=== PATIENT | male | born 1980 | race Caucasian/White ===

== ENCOUNTER 2018-06-22 09:03 | Inpatient (IN) | payer OTHER ==
[2018-06-22] MEDS ORDERED: SODIUM CHLORIDE 1,000 ML IV STA (09:52)
[2018-06-22 10:10] LABS: BASO % 0.5 % (0-2.0); EOS % 0.2 % (0-4.5); HEMATOCRIT 52.1 % (35.4-49); LYMPH % 19.7 % (8-40); MCHC 34.6 g/dl (32.0-35.9); MEAN CELL VOLUME 89.6 fl (80-96); MEAN PLT VOLUME 10.7 fl (7.5-11.1); NEUT % 74.6 % (42.8-82.8); PLATELET COUNT 236 K/MM3 (134-434); RBC 5.81 M/mm3 (4.00-5.60); WHITE BLOOD COUNT 10.9 K/mm3 (4.0-10.0)
[2018-06-22 10:22] LABS: INR 0.94 (0.83-1.09); PROTHROMBIN TIME (PATIENT) 11.1 SEC (9.7-13.0)
[2018-06-22 10:25] LABS: ACTIVATED PTT 33.3 SECONDS (25.2-36.5)
[2018-06-22 10:26] LABS: URINE APPEARANCE CLEAR; URINE BILIRUBIN NEGATIVE (<2.0 mg/dL); URINE COLOR LTYELLOW; URINE GLUCOSE (UA) 3+ (NEGATIVE); URINE KETONE 2+ (NEGATIVE); URINE LEUK ESTERASE NEGATIVE (NEGATIVE); URINE NITRITE NEGATIVE (NEGATIVE); URINE PROTEIN 2+ (NEGATIVE); URINE UROBILINOGEN NEGATIVE mg/dL (0.2-1.0)
[2018-06-22 10:31] LABS: ALBUMIN 4.6 g/dl (3.4-5.0); ALK PHOS 130 U/L (45-117); ANION GAP 18 MMOL/L (8-16); BILIRUBIN,TOTAL 0.8 mg/dL (0.2-1); BLOOD UREA NITROGEN 9 mg/dL (7-18); CALCIUM 9.4 mg/dL (8.5-10.1); CHLORIDE 103 mmol/L (98-107); CO2 11 mmol/L (21-32); CREATININE 1.1 mg/dL (0.55-1.3); MAGNESIUM 2.5 mg/dL (1.8-2.4); PHOSPHOROUS 3.1 mg/dL (2.5-4.9); POTASSIUM 4.7 mmol/L (3.5-5.1); SGOT/AST 11 U/L (15-37); SGPT/ALT 25 U/L (13-61); SODIUM 132 mmol/L (136-145); TOT PROT 9.1 g/dl (6.4-8.2)
[2018-06-22 10:33] LABS: GLUCOSE,RANDOM 304 mg/dL (74-106)
[2018-06-22 10:43] LABS: URINE HYALINE CAST 1 /lpf
[2018-06-22] MEDS ORDERED: DEXTROSE 5%-NORMAL SALINE 1,000 ML IV SCH (10:45)
[2018-06-22] MEDS ORDERED: INSULIN REGULAR 100 UNITS in SODIUM CHLORIDE 99 ML IVPB SCH ×2 (10:45→23:45)
[2018-06-22] MEDS ORDERED: INSULIN REGULAR HUMAN 100 UNITS/ML *VIAL ONE ×2 (10:50→10:57)
--- NOTE | 2018-06-22 10:50 | PDOC ---
History of Present Illness - General Chief Complaint: Weakness Stated Complaint: SHORTNESS OF BREATH Time Seen by Provider: 06/22/18 09:43 History Source: Patient Exam Limitations: No Limitations - History of Present Illness Initial Comments: 06/22/18 10:50 37 year old male c/ pmh type 1 DM, current smoker, former cocaine and alcohol abuse presents with weakness and SOB x 2 days. The patient reports that he has been feeling generally weak. Drinking plenty of fluids because he feels thirsty. Notes that his sugars are poorly controlled despite taking insulin. No recent illnesses, fevers, chills, cough, vomiting, dysuria. Also noted worsening dyepna on exertion and SOB improved with rest. No chest pain. No prior cardiac history. Denies IVDA use. Past History - Past Medical History Allergies/Adverse Reactions: Allergies Allergy/AdvReac Type Severity Reaction Status Date / Time No Known Allergies Allergy Verified 06/22/18 09:34 Home Medications: Ambulatory Orders Insulin Glargine,Hum.rec.anlog [Lantus] 20 unit SQ HS 06/22/18 Insulin Glargine,Hum.rec.anlog [Lantus] 35 unit SQ AM 06/22/18 Insulin Lispro [Humalog] 0 unit SQ ASDIR 06/22/18 Lisinopril 10 mg PO DAILY 06/22/18 COPD: No - Suicide/Smoking/Psychosocial Hx Smoking History: Current every day smoker Number of Cigarettes Smoked Daily: 10 Information on smoking cessation initiated: No Hx Alcohol Use: Yes Drug/Substance Use Hx: Yes Review of Systems - Review of Systems Able to Perform ROS?: Yes Comments:: 06/22/18 10:53 GENERAL/CONSTITUTIONAL: [No fever or chills. No weight change.] + weakness HEAD, EYES, EARS, NOSE AND THROAT: [No change in vision. No ear pain or discharge. No sore throat.] CARDIOVASCULAR: [No chest pain. + shortness of breath.] RESPIRATORY: [No cough, wheezing, or hemoptysis.] GASTROINTESTINAL: [No nausea, vomiting, diarrhea or constipation. No rectal bleeding.] GENITOURINARY: [No dysuria, frequency, or change in urination.] MUSCULOSKELETAL: [No joint or muscle swelling or pain. No neck or back pain.] SKIN AND BREASTS: [No rash or easy bruising.] NEUROLOGIC: [No headache, vertigo, loss of consciousness, or loss of sensation.] PSYCHIATRIC: [No depression or anxiety.] ENDOCRINE: [No increased thirst. No abnormal weight change.] HEMATOLOGIC/LYMPHATIC: [No anemia, easy bleeding, or history of blood clots.] ALLERGIC/IMMUNOLOGIC: [No hives or skin allergy. No latex allergy.] *Physical Exam - Vital Signs Last Vital Signs Temp Pulse Resp BP Pulse Ox 97.6 F 71 18 144/75 100 06/22/18 09:05 06/22/18 09:05 06/22/18 09:05 06/22/18 09:05 06/22/18 09:05 - Physical Exam Comments: 06/22/18 10:54 GENERAL: Awake, alert, and fully oriented, in no acute distress HEAD: No signs of trauma EYES: EOMI, sclera anicteric, conjunctiva clear ENT: Auricles normal inspection, hearing grossly normal, nares patent. + dry mucous membranes NECK: Normal ROM, supple LUNGS: Breath sounds equal, clear to auscultation bilaterally. No wheezes, and no crackles HEART: Regular rate and rhythm, normal S1 and S2, no murmurs, rubs or gallops ABDOMEN: Soft, nontender, No guarding, no rebound. No masses EXTREMITIES: Normal range of motion, no edema. No clubbing or cyanosis. No cords, erythema, or tenderness NEUROLOGICAL: Cranial nerves II through XII grossly intact. Normal speech SKIN: Warm, Dry, normal turgor, no rashes or lesions noted. Moderate Sedation - Procedure Monitoring Vital Signs: Procedure Monitoring Vital Signs Temperature 97.6 F 06/22/18 09:05 Pulse Rate 71 06/22/18 09:05 Respiratory Rate 18 06/22/18 09:05 Blood Pressure 144/75 06/22/18 09:05 O2 Sat by Pulse Oximetry (%) 100 06/22/18 09:05 Heart Score/ECG Review #1 ECG reviewed & interpreted by me at: 10:15 06/22/18 10:45 NSR 63, no std/iqra, normal axis, normal intervals, T wave flat aVL, QTC 452 msec ED Treatment Course - LABORATORY CBC & Chemistry Diagram: 06/22/18 10:00 06/22/18 14:40 - ADDITIONAL ORDERS Additional order review: Laboratory Results 06/22/18 06/22/18 06/22/18 10:00 10:00 10:00 PT with INR 11.10 INR 0.94 PTT (Actin FS) 33.3 Sodium 132 L Potassium 4.7 Chloride 103 Carbon Dioxide 11 L Anion Gap 18 H BUN 9 Creatinine 1.1 Creat Clearance w eGFR > 60 POC Glucometer Random Glucose 304 H* Calcium 9.4 Phosphorus 3.1 Magnesium 2.5 H Total Bilirubin 0.8 AST 11 L ALT 25 Alkaline Phosphatase 130 H Creatine Kinase 159 Troponin I < 0.02 Total Protein 9.1 H Albumin 4.6 Urine Color Ltyellow Urine Appearance Clear Urine pH 5.0 Ur Specific [place] 1.031 Urine Protein 2+ H Urine Glucose (UA) 3+ H Urine Ketones 2+ H Urine Blood 1+ H Urine Nitrite Negative Urine Bilirubin Negative Urine Urobilinogen Negative Ur Leukocyte Esterase Negative 06/22/18 09:25 PT with INR INR PTT (Actin FS) Sodium Potassium Chloride Carbon Dioxide Anion Gap BUN Creatinine Creat Clearance w eGFR POC Glucometer 338 Random Glucose Calcium Phosphorus Magnesium Total Bilirubin AST ALT Alkaline Phosphatase Creatine Kinase Troponin I Total Protein Albumin Urine Color Urine Appearance Urine pH Ur Specific [place] Urine Protein Urine Glucose (UA) Urine Ketones Urine Blood Urine Nitrite Urine Bilirubin Urine Urobilinogen Ur Leukocyte Esterase 06/22/18 06/22/18 10:00 09:25 RBC 5.81 H MCV 89.6 MCHC 34.6 RDW 13.0 MPV 10.7 Neutrophils % 74.6 Lymphocytes % 19.7 Monocytes % 5.0 Eosinophils % 0.2 Basophils % 0.5 POC Glucometer 338 - RADIOLOGY Radiology Studies Ordered: Category Date Time Status CHEST X-RAY PORTABLE* [RAD] Stat Radiology 06/22/18 10:10 Taken Medical Decision Making - Critical Care Time Total Critical Care Time (minutes): 35 Critical Care Statement: The care of this patient involved high complexity decision making to prevent further life threatening deterioration of the patient 's condition and/or to evaluate & treat vital organ system(s) failure or risk of failure. - Medical Decision Making 06/22/18 10:54 A portion of this note was documented by scribe services under my direction. I have reviewed the details of the note, within reason, and agree with the documentation with the following case summary and management plan written by me. Patient treated in the ED. Nursing notes are reviewed and incorporated into the medical decision-making. Vital signs reviewed. Peripheral IV access obtained by the nurse, laboratory studies are drawn and sent, reviewed and interpreted by myself. Vital Signs Temp Pulse Resp BP Pulse Ox 97.6 F 71 18 144/75 100 06/22/18 09:05 06/22/18 09:05 06/22/18 09:05 06/22/18 09:05 06/22/18 09:05 The patient's weakness and shortness of breath is likely secondary to his diabetic ketoacidosis. Patient is nontoxic appearing but will require insulin drip. We'll also initiate infectious drip as well. Labs reviewed. Patient should be admitted to the hospital for DKA. 06/22/18 12:13 CBC, BMP 06/22/18 10:00 06/22/18 10:00 CMP Sodium 132 mmol/L (136-145) L 06/22/18 10:00 Potassium 4.7 mmol/L (3.5-5.1) 06/22/18 10:00 Chloride 103 mmol/L (98-107) 06/22/18 10:00 Carbon Dioxide 11 mmol/L (21-32) L 06/22/18 10:00 Anion Gap 18 MMOL/L (8-16) H 06/22/18 10:00 BUN 9 mg/dL (7-18) 06/22/18 10:00 Creatinine 1.1 mg/dL (0.55-1.3) 06/22/18 10:00 Creat Clearance w eGFR > 60 (>60) 06/22/18 10:00 POC Glucometer 338 UNITS (80-120) 06/22/18 09:25 Random Glucose 304 mg/dL (74-106) H* 06/22/18 10:00 Calcium 9.4 mg/dL (8.5-10.1) 06/22/18 10:00 Phosphorus 3.1 mg/dL (2.5-4.9) 06/22/18 10:00 Magnesium 2.5 mg/dL (1.8-2.4) H 06/22/18 10:00 Total Bilirubin 0.8 mg/dL (0.2-1) 06/22/18 10:00 AST 11 U/L (15-37) L 06/22/18 10:00 ALT 25 U/L (13-61) 06/22/18 10:00 Alkaline Phosphatase 130 U/L (45-117) H 06/22/18 10:00 Creatine Kinase 159 U/L (26-308) 06/22/18 10:00 Creatine Kinase Index 2.9 % (0.0-5.0) 06/22/18 10:00 CK-MB (CK-2) 4.7 ng/mL (0.5-3.6) H 06/22/18 10:00 Troponin I < 0.02 ng/ml (0.00-0.05) 06/22/18 10:00 Total Protein 9.1 g/dl (6.4-8.2) H 06/22/18 10:00 Albumin 4.6 g/dl (3.4-5.0) 06/22/18 10:00 Lipase 137 U/L (73-393) 06/22/18 11:30 Urine Test Results Urine Color Ltyellow 06/22/18 10:00 Urine Appearance Clear 06/22/18 10:00 Urine pH 5.0 (5.0-8.0) 06/22/18 10:00 Ur Specific [place] 1.031 (1.010-1.035) 06/22/18 10:00 Urine Protein 2+ (NEGATIVE) H 06/22/18 10:00 Urine Glucose (UA) 3+ (NEGATIVE) H 06/22/18 10:00 Urine Ketones 2+ (NEGATIVE) H 06/22/18 10:00 Urine Blood 1+ (NEGATIVE) H 06/22/18 10:00 Urine Nitrite Negative (NEGATIVE) 06/22/18 10:00 Urine Bilirubin Negative (<2.0 mg/dL) 06/22/18 10:00 Ur Leukocyte Esterase Negative (NEGATIVE) 06/22/18 10:00 Labs reviewed. Pt noted to be in DKA. IVF, insulin drip and dextrose-NS maintenance ordered. ICU paged, awaiting response. Will admit patient for DKA. DKA likely source of weakness and SOB. 06/22/18 17:07 Repeat BMP shows a closed AG and glucose close to 200. 5u subq insulin ordered. Insulin drip discontinued. Will continue dextrose drip. I have discussed with Priyanka Franz, We will repeat BMP. If AG continues to remain close, will switch pt from ICU to med/surg. *DC/Admit/Observation/Transfer Diagnosis at time of Disposition: DKA (diabetic ketoacidoses) Qualifiers: Diabetes mellitus type: type 1 Diabetes mellitus complication detail: without coma Qualified Code(s): E10.10 - Type 1 diabetes mellitus with ketoacidosis without coma - Discharge Dispostion Condition at time of disposition: Stable Decision to Admit order: Yes - Referrals - Patient Instructions - Post Discharge Activity
[2018-06-22 11:36] LABS: ACETONE SERUM POSITIVE MODERATE 2+ (NEGATIVE)
[2018-06-22 14:45] LABS: VENOUS PC02 38.3 mmHg (38-52); VENOUS PH 7.28 (7.32-7.42); VENOUS PO2 16.2 mmHg (28-48)
[2018-06-22 14:59] LABS: ANION GAP 13 MMOL/L (8-16); BLOOD UREA NITROGEN 12 mg/dL (7-18); CALCIUM 9.4 mg/dL (8.5-10.1); CHLORIDE 103 mmol/L (98-107); CO2 17 mmol/L (21-32); CREATININE 1.3 mg/dL (0.55-1.3); GLUCOSE,RANDOM 217 mg/dL (74-106); POTASSIUM 4.7 mmol/L (3.5-5.1); SODIUM 132 mmol/L (136-145)
--- NOTE | 2018-06-22 15:03 | HP ---
CHIEF COMPLAINT: SOB, WEAKNESS PCP: Mohit Cotter MD HISTORY OF PRESENT ILLNESS: This is a 37 year old male with a primary medical history significant for type 1 DM, current smoker, former cocaine/ marijuana and alcohol abuse,who presents ER complaining of weakness, nausea, SOB, polyuria,polydipsia , DAWKINS, dizziness x2 days. Pt denies cp, cough, palpitations, abdominal pain, diarrhea, dysuria, hematuria. In ER, found to have BS 304,urine positive for ketones, 2+ Protein, and Anion Gap 18. Admitted with DKA. Pt reports noncompliant with Insulin. ER course was notable for: (1) URINE + KETONES, 2+ Protein, BS 304 , Anion Gap18 (2)N 132,K 4.7, ALK 130,Ck-MB 4.7, trp neg (3)wbc -10.9 Recent Travel:No PAST MEDICAL HISTORY: as mentioned above PAST SURGICAL HISTORY: Let ear reconstruction Abscess removed from under arms in 1999 Social History: Smoking:yes Alcohol:yes Drugs: Hx of marijuana use, last use reported one month ago Family History: Mother / Father -DM Maternal/ Fraternal grandparents -DM Allergies No Known Allergies Allergy (Verified 06/22/18 09:34) HOME MEDICATIONS: Home Medications Medication Instructions Recorded Insulin Glargine,Hum.rec.anlog 20 unit SQ HS 06/22/18 [Lantus] Insulin Glargine,Hum.rec.anlog 35 unit SQ AM 06/22/18 [Lantus] Insulin Lispro [Humalog] 0 unit SQ ASDIR 06/22/18 Lisinopril 10 mg PO DAILY 06/22/18 REVIEW OF SYSTEMS CONSTITUTIONAL: Absent: fever, chills, diaphoresis, generalized weakness, malaise, loss of appetite, weight change HEENT: Absent: rhinorrhea, nasal congestion, throat pain, throat swelling, difficulty swallowing, mouth swelling, ear pain, eye pain, visual changes CARDIOVASCULAR: Absent: chest pain, syncope, palpitations, irregular heart rate, lightheadedness , peripheral edema RESPIRATORY: Absent: cough, shortness of breath, dyspnea with exertion, orthopnea, wheezing, stridor, hemoptysis GASTROINTESTINAL: Absent: abdominal pain, abdominal distension, nausea, vomiting, diarrhea, constipation, melena, hematochezia GENITOURINARY: Absent: dysuria, frequency, urgency, hesitancy, hematuria, flank pain, genital pain MUSCULOSKELETAL: Absent: myalgia, arthralgia, joint swelling, back pain, neck pain SKIN: Absent: rash, itching, pallor HEMATOLOGIC/IMMUNOLOGIC: Absent: easy bleeding, easy bruising, lymphadenopathy, frequent infections ENDOCRINE: Absent: unexplained weight gain, unexplained weight loss, heat intolerance, cold intolerance NEUROLOGIC: Absent: headache, focal weakness or paresthesias, dizziness, unsteady gait, seizure, mental status changes, bladder or bowel incontinence PSYCHIATRIC: Absent: anxiety, depression, suicidal or homicidal ideation, hallucinations. PHYSICAL EXAMINATION Vital Signs - 24 hr 06/22/18 06/22/18 06/22/18 09:05 09:10 11:13 Temperature 97.6 F Pulse Rate 71 Pulse Rate [ 68 Right Radial] Respiratory 18 20 Rate Blood Pressure 144/75 Blood Pressure 140/77 [Left Arm] O2 Sat by Pulse 100 100 100 Oximetry (%) GENERAL: Awake, alert, and fully oriented, in no acute distress. HEAD: Normal with no signs of trauma. EYES: Pupils equal, round and reactive to light, extraocular movements intact, sclera anicteric, conjunctiva clear. No lid lag. EARS, NOSE, THROAT: Ears normal, nares patent, oropharynx clear without exudates. Moist mucous membranes. NECK: Normal range of motion, supple without lymphadenopathy, JVD, or masses. LUNGS: Breath sounds equal, clear to auscultation bilaterally. No wheezes, and no crackles. No accessory muscle use. HEART: Regular rate and rhythm, normal S1 and S2 without murmur, rub or gallop. ABDOMEN: Soft, nontender, not distended, normoactive bowel sounds, no guarding, no rebound, no masses. No hepatomegaly or splenomegaly. MUSCULOSKELETAL: Normal range of motion at all joints. No bony deformities or tenderness. No CVA tenderness. UPPER EXTREMITIES: 2+ pulses, warm, well-perfused. No cyanosis. No clubbing. No peripheral edema. LOWER EXTREMITIES: 2+ pulses, warm, well-perfused. No calf tenderness. No peripheral edema. NEUROLOGICAL: Cranial nerves II-XII intact. Normal speech. Normal gait. PSYCHIATRIC: Cooperative. Good eye contact. Appropriate mood and affect. SKIN: Warm, dry, normal turgor, no rashes or lesions noted, normal capillary refill. Laboratory Results - last 24 hr 06/22/18 06/22/18 06/22/18 09:25 10:00 10:00 WBC 10.9 H RBC 5.81 H Hgb 18.0 H Hct 52.1 H MCV 89.6 MCH 31.0 MCHC 34.6 RDW 13.0 Plt Count 236 MPV 10.7 Absolute Neuts (auto) 8.2 H Neutrophils % 74.6 Lymphocytes % 19.7 Monocytes % 5.0 Eosinophils % 0.2 Basophils % 0.5 Nucleated RBC % 0 PT with INR 11.10 INR 0.94 PTT (Actin FS) 33.3 Sodium Potassium Chloride Carbon Dioxide Anion Gap BUN Creatinine Creat Clearance w eGFR POC Glucometer 338 Random Glucose Calcium Phosphorus Magnesium Total Bilirubin AST ALT Alkaline Phosphatase Creatine Kinase Creatine Kinase Index CK-MB (CK-2) Troponin I Total Protein Albumin Lipase Urine Color Urine Appearance Urine pH Ur Specific [place] Urine Protein Urine Glucose (UA) Urine Ketones Urine Blood Urine Nitrite Urine Bilirubin Urine Urobilinogen Ur Leukocyte Esterase Urine WBC (Auto) Urine RBC (Auto) Hyaline Casts Acetone, Qual 06/22/18 06/22/18 06/22/18 10:00 10:00 11:30 WBC RBC Hgb Hct MCV MCH MCHC RDW Plt Count MPV Absolute Neuts (auto) Neutrophils % Lymphocytes % Monocytes % Eosinophils % Basophils % Nucleated RBC % PT with INR INR PTT (Actin FS) Sodium 132 L Potassium 4.7 Chloride 103 Carbon Dioxide 11 L Anion Gap 18 H BUN 9 Creatinine 1.1 Creat Clearance w eGFR > 60 POC Glucometer Random Glucose 304 H* Calcium 9.4 Phosphorus 3.1 Magnesium 2.5 H Total Bilirubin 0.8 AST 11 L ALT 25 Alkaline Phosphatase 130 H Creatine Kinase 159 Creatine Kinase Index 2.9 CK-MB (CK-2) 4.7 H Troponin I < 0.02 Total Protein 9.1 H Albumin 4.6 Lipase 137 Urine Color Ltyellow Urine Appearance Clear Urine pH 5.0 Ur Specific [place] 1.031 Urine Protein 2+ H Urine Glucose (UA) 3+ H Urine Ketones 2+ H Urine Blood 1+ H Urine Nitrite Negative Urine Bilirubin Negative Urine Urobilinogen Negative Ur Leukocyte Esterase Negative Urine WBC (Auto) 1 Urine RBC (Auto) <1 Hyaline Casts 1 Acetone, Qual Positive moderate 2+ 06/22/18 13:02 WBC RBC Hgb Hct MCV MCH MCHC RDW Plt Count MPV Absolute Neuts (auto) Neutrophils % Lymphocytes % Monocytes % Eosinophils % Basophils % Nucleated RBC % PT with INR INR PTT (Actin FS) Sodium Potassium Chloride Carbon Dioxide Anion Gap BUN Creatinine Creat Clearance w eGFR POC Glucometer 211 Random Glucose Calcium Phosphorus Magnesium Total Bilirubin AST ALT Alkaline Phosphatase Creatine Kinase Creatine Kinase Index CK-MB (CK-2) Troponin I Total Protein Albumin Lipase Urine Color Urine Appearance Urine pH Ur Specific [place] Urine Protein Urine Glucose (UA) Urine Ketones Urine Blood Urine Nitrite Urine Bilirubin Urine Urobilinogen Ur Leukocyte Esterase Urine WBC (Auto) Urine RBC (Auto) Hyaline Casts Acetone, Qual CxR: No acute pathology EKG: SR, no acute ST or T wave changes ASSESSMENT/PLAN: This is a 37 year old male with a primary medical history significant for type 1 DM, current smoker, former cocaine/ marijuana and alcohol abuse, admitted with DKA. * DKA - likely due to Insulin noncompliance - BS 304 -urine positive for ketones, 2+ Protein -Anion Gap 18 -will cont on Insulin drip -FS Q2hrs -BS trending down -On IVF - Dextrose -ICU admission pending -repeat Business And Financial Counsel and ABG pending - Endo consult - not in any kind of respiratory distress * Smoking - started on Nicotine patch - smoking cessation counselling done *mild leukocytosis-likely reactive - no pyuria - cxr - NAD - afebrile * VTE: Lovenox * F/E/N: Consistent carb diet. Visit type - Emergency Visit Emergency Visit: Yes ED Registration Date: 06/22/18 Care time: The patient presented to the Emergency Department on the above date and was hospitalized for further evaluation of their emergent condition. - New Patient This patient is new to me today: Yes Date on this admission: 06/23/18 - Critical Care Critical Care patient: No
[2018-06-22] MEDS ORDERED: ENOXAPARIN NA (PORCINE) 40 MG/0.4 ML DISP.SYRIN SQ SCH (15:15)
[2018-06-22] MEDS ORDERED: NICOTINE 14 MG/24 HOURS TOPICAL PATCH TD SCH (15:19)
--- NOTE | 2018-06-22 15:29 | EKG ---
Test Reason : Blood Pressure : / mmHG Vent. Rate : 063 BPM Atrial Rate : 063 BPM P-R Int : 152 ms QRS Dur : 100 ms QT Int : 442 ms P-R-T Axes : 076 084 065 degrees QTc Int : 452 ms NORMAL SINUS RHYTHM NORMAL ECG NO PREVIOUS ECGS AVAILABLE Confirmed by Hesham Snow MD ([id number]) on 06/22/2018 3:29:11 PM Referred By: Confirmed By:Hesham Snow MD
[2018-06-22] MEDS ORDERED: INSULIN REGULAR HUMAN 100 UNITS/ML *VIAL SQ ONE (17:06)
[2018-06-22 17:11] LABS: ARTERIAL BLD GAS O2 SATURATION 98.1 % (90-98.9); ARTERIAL BLOOD GAS BASE EXCESS -8.6 meq/l (-2-2); ARTERIAL BLOOD GAS PCO2 26.6 mmHg (35-45); ARTERIAL BLOOD GAS pH 7.37 (7.35-7.45)
[2018-06-22 17:13] LABS: ALLENS TEST POSITIVE
[2018-06-22 18:48] LABS: ANION GAP 11 MMOL/L (8-16); BLOOD UREA NITROGEN 15 mg/dL (7-18); CALCIUM 9.3 mg/dL (8.5-10.1); CHLORIDE 105 mmol/L (98-107); CO2 17 mmol/L (21-32); CREATININE 1.1 mg/dL (0.55-1.3); GLUCOSE,RANDOM 188 mg/dL (74-106); SODIUM 133 mmol/L (136-145)
[2018-06-22 23:29] LABS: ALBUMIN 3.8 g/dl (3.4-5.0); ALK PHOS 109 U/L (45-117); ANION GAP 14 MMOL/L (8-16); BILIRUBIN,TOTAL 0.6 mg/dL (0.2-1); BLOOD UREA NITROGEN 16 mg/dL (7-18); CALCIUM 8.5 mg/dL (8.5-10.1); CHLORIDE 100 mmol/L (98-107); CO2 16 mmol/L (21-32); CREATININE 1.1 mg/dL (0.55-1.3); POTASSIUM 4.3 mmol/L (3.5-5.1); SGOT/AST 15 U/L (15-37); SGPT/ALT 21 U/L (13-61); SODIUM 130 mmol/L (136-145); TOT PROT 7.8 g/dl (6.4-8.2)
[2018-06-22 23:30] LABS: GLUCOSE,RANDOM 422 mg/dL (74-106)
[2018-06-23] MEDS ORDERED: INSULIN REGULAR HUMAN 100 UNITS/ML *VIAL IVPUSH ONE (00:06)
[2018-06-23] MEDS ORDERED: INSULIN (LEVEMIR) 100 UNITS/ML UNITS SQ SCH ×4 (00:06→22:00)
[2018-06-23] MEDS ORDERED: INSULIN REGULAR HUMAN 100 UNITS/ML *VIAL ONE ×2 (00:58→18:07)
[2018-06-23] MEDS ORDERED: SODIUM CHLORIDE 1,000 ML IV STA (02:31)
--- NOTE | 2018-06-23 02:31 | PN ---
Progress Note (short form) - Note Progress Note: Patient admitted for the treatment of DKA. Reevaluated in the ED after sugar was 422 mg/dl. Vitals: BP: 131/79, HR 72 bpm, RR 16, Spo2- 98 % in RA Physical Exam: General: Patient sleeping comfortably in bed, arousable, awake, alert in no acute distress Neck: Supple Chest: B/L lungs clear, no added sounds CVS: Regular rate, S1, s2, no murmurs Abdomen: Soft, non tender, no organomegaly Ext: No edema. A/P 37 YO M admitted for the treatment of DKA. # DKA: AG closed. Drip was discontinued. However, on repeat BMP, patient's blood sugar was noted to be 422 mg/dl, AG 14. Insulin drip was restarted @ 6 units/hr FBG : 369 @ 2:35 am IV NS bolus given and to continue IV NS @ 100 mls/hr + 10 mEq/hr. NPO Stat BMP ordered, then BMP Q4H Finger stick Q2H Case discussed with MAXIMINO Barrera who accepts the patient in ICU. <Shannon Billy - Last Filed: 07/18/18 10:51> - Note Progress Note: Seen and examined; agree with the above aside from what is supplemented by myself in my own documentation. Reviewed all lindsay parts of history and exam with resident team and verified independently. <Kam Jimenez - Last Filed: 07/22/18 21:27>
[2018-06-23] MEDS ORDERED: SODIUM CHLORIDE 1,000 ML IV SCH (02:45)
[2018-06-23] MEDS ORDERED: SODIUM CHLORIDE KCL IV SCH (02:45)
[2018-06-23] MEDS ORDERED: SODIUM CHLORIDE 0.9%/KCL 20 MEQ/1,000 ML INFUS.BAG IV SCH (02:45)
[2018-06-23 03:40] VITALS: BMI 20.8
[2018-06-23] MEDS ORDERED: PNEUMOC 13-VAL CONJ-DIP CRM/PF 0.5 ML DISP.SYRIN IM ONE (03:42)
[2018-06-23] MEDS ORDERED: INSULIN REGULAR 100 UNITS in SODIUM CHLORIDE 99 ML IVPB SCH (03:45)
[2018-06-23 04:38] LABS: ANION GAP 11 MMOL/L (8-16); BLOOD UREA NITROGEN 14 mg/dL (7-18); CHLORIDE 107 mmol/L (98-107); CO2 17 mmol/L (21-32); GLUCOSE,RANDOM 229 mg/dL (74-106); POTASSIUM 3.8 mmol/L (3.5-5.1); SODIUM 135 mmol/L (136-145)
[2018-06-23 05:57] LABS: BASO % 0.2 % (0-2.0); EOS % 1.3 % (0-4.5); HEMATOCRIT 44.4 % (35.4-49); HEMOGLOBIN 15.6 GM/dL (11.7-16.9); LYMPH % 30.4 % (8-40); MCH 30.3 pg (25.7-33.7); MCHC 35.2 g/dl (32.0-35.9); MEAN CELL VOLUME 86.3 fl (80-96); MEAN PLT VOLUME 10.1 fl (7.5-11.1); MONO % 7.1 % (3.8-10.2); PLATELET COUNT 226 K/MM3 (134-434); RBC 5.14 M/mm3 (4.00-5.60); RDW 12.7 % (11.9-15.9); WHITE BLOOD COUNT 11.9 K/mm3 (4.0-10.0)
[2018-06-23 06:29] LABS: ALBUMIN 3.6 g/dl (3.4-5.0); ALK PHOS 102 U/L (45-117); ANION GAP 7 MMOL/L (8-16); BILIRUBIN,TOTAL 0.5 mg/dL (0.2-1); BLOOD UREA NITROGEN 14 mg/dL (7-18); CALCIUM 8.5 mg/dL (8.5-10.1); CHLORIDE 107 mmol/L (98-107); CO2 21 mmol/L (21-32); GLUCOSE,RANDOM 119 mg/dL (74-106); POTASSIUM 3.7 mmol/L (3.5-5.1); SGOT/AST 11 U/L (15-37); SGPT/ALT 21 U/L (13-61); SODIUM 136 mmol/L (136-145); TOT PROT 7.5 g/dl (6.4-8.2)
[2018-06-23] MEDS ORDERED: D5-1/2NS+20 MEQ KCL - 20 MEQ/1,000 ML INFUS.BAG IV SCH (06:45)
[2018-06-23] MEDS ORDERED: INSULIN (LEVEMIR) 100 UNITS/ML UNITS SQ ONE ×2 (06:45→08:15)
[2018-06-23] MEDS: INSULIN SLIDING SCALE (NOVOLOG) 1 VIAL SQ SCH ×3 (06:48→16:39)
[2018-06-23] MEDS: INSULIN REGULAR 100 UNITS in SODIUM CHLORIDE 99 ML IVPB SCH (07:35)
--- NOTE | 2018-06-23 08:50 | CONSULT ---
Consult Consult Specialty:: PULM/CCM Referred by:: Dr. Luis Manuel Grullon Reason for Consultation:: DKA - History of Present Illness Chief Complaint: GEN MALAISE History of Present Illness: Mr Hart is a 37 y/o man w/ IDDM, pt of Dr. Mohit Cotter. The pt presents to the ED yesterday w/ gen malaise. W/u reveals DKA w/ BGL = 304mg/dl, urine positive for ketones, 2+ Protein, and Anion Gap 18. Pt endorses "creative" regimen compliance. Admitted now to ICU for DKA. Home Regimen: 35 Long Acting in AM 8 Short Acting/Meal (Standing) 20 Long Acting HS The pt only eats BID. The pt checks his BGL X3/Day. The pt Does NOT carb count --> The Pt takes 8U short acting BID no matter what or how much he eats. The pt denies any Prodrome: No Fever, DAWKINS, chills, coughing, rhinorrhea, or diarrhea. This appears to be the result of straight non-compliance. 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 Cardio/Vascular: No: HTN Pulmonary: No: Asthma Gastrointestinal: No: Constipation Hepatobiliary: No: Cirrhosis Renal/: No: Renal Failure Heme/Onc: No: Anemia Psych: Yes: Addictions Endocrine: Yes: Diabetes Mellitus - Past Surgical History Past Surgical History: Yes: None - Alcohol/Substance Use Hx Alcohol Use: Yes - Smoking History Smoking history: Current every day smoker Have you smoked in the past 12 months: Yes Aproximately how many cigarettes per day: 10 - Social History Usual Living Arrangement: With Parent History of Recent Travel: No Home Medications - Allergies Allergies/Adverse Reactions: Allergies Allergy/AdvReac Type Severity Reaction Status Date / Time No Known Allergies Allergy Verified 06/22/18 09:34 - Home Medications Home Medications: Ambulatory Orders Insulin Glargine,Hum.rec.anlog [Lantus] 20 unit SQ HS 06/22/18 Insulin Glargine,Hum.rec.anlog [Lantus] 35 unit SQ AM 06/22/18 Insulin Lispro [Humalog] 0 unit SQ ASDIR 06/22/18 RX: Lisinopril 10 mg PO DAILY 06/22/18 Family Disease History - Family Disease History Family History: Denies Review of Systems - Review of Systems Constitutional: reports: Weakness Eyes: reports: No Symptoms HENT: reports: No Symptoms Neck: reports: No Symptoms Cardiovascular: reports: No Symptoms Respiratory: reports: SOB Gastrointestinal: reports: No Symptoms Genitourinary: reports: No Symptoms Breasts: reports: No Symptoms Reported Musculoskeletal: reports: No Symptoms Integumentary: reports: No Symptoms Neurological: reports: No Symptoms Endocrine: reports: Increased Thirst Hematology/Lymphatic: reports: No Symptoms Psychiatric: reports: No Symptoms Pain Intensity: 0 Physical Exam Vital Signs: Vital Signs Temperature 97.7 F 06/23/18 06:00 Pulse Rate 85 06/23/18 08:00 Respiratory Rate 16 06/23/18 08:00 Blood Pressure 120/88 06/23/18 08:00 O2 Sat by Pulse Oximetry (%) 99 06/23/18 08:00 Intake & Output 06/20/18 06/21/18 06/22/18 06/23/18 23:59 23:59 23:59 23:59 Intake Total 480.4 Balance 480.4 Weight 63.957 kg 63.957 kg Constitutional: Yes: Well Nourished, No Distress, Calm Eyes: Yes: WNL, Conjunctiva Clear, EOM Intact HENT: Yes: WNL, Atraumatic, Normocephalic Neck: Yes: WNL, Supple, Trachea Midline Cardiovascular: Yes: WNL, Regular Rate and Rhythm Respiratory: Yes: WNL, Regular, CTA Bilaterally Gastrointestinal: Yes: WNL, Normal Bowel Sounds, Soft ...Rectal Exam: Yes: Deferred Renal/: Yes: WNL Breast(s): Yes: WNL Musculoskeletal: Yes: WNL Extremities: Yes: WNL Edema: No Peripheral Pulses WNL: Yes Integumentary: Yes: WNL Neurological: Yes: WNL, Alert, Oriented ...Motor Strength: WNL Psychiatric: Yes: WNL, Alert, Oriented Labs: CBC, BMP 06/23/18 05:30 06/23/18 05:30 Imaging - Results Chest X-ray: Image Reviewed (CXR 06/22: Hyperinflated, otherwise Clear (My Read).) EKG: Image Reviewed (EKG 06/22: RSR no acute ST or T wave changes.) Assessment/Plan ASSESS: This is a 37 y/o man w/ IDDM admitted now w/ DKA. PLAN: -DKA Protocol (Insulin gtt, D5 chaser, aggressive K+ replete) -OOB throughout the day -Can leave unit off monitor -Can leave unit to shower -Resume Diet -Resume Insulin Home regimen -Hgb A1C -ENDO Consult DGL, ACNP-BC [facility] ICU PULM/CCM [id number]
[2018-06-23 08:57] LABS: MAGNESIUM 2.3 mg/dL (1.8-2.4); PHOSPHOROUS 1.8 mg/dL (2.5-4.9)
[2018-06-23] MEDS: LISINOPRIL 10 MG TABLET (FP) PO SCH (09:18)
[2018-06-23] MEDS: ENOXAPARIN NA (PORCINE) 40 MG/0.4 ML DISP.SYRIN SQ SCH (09:19)
[2018-06-23] MEDS: NICOTINE 14 MG/24 HOURS TOPICAL PATCH TD SCH (09:20)
[2018-06-23] MEDS: MUPIROCIN 2% TOPICAL OINTMENT FOR DECOLONIZATION NS SCH ×2 (09:25→21:10)
[2018-06-23] MEDS ORDERED: LISINOPRIL 10 MG TABLET (FP) PO SCH (10:00)
[2018-06-23] MEDS ORDERED: FLU VACCINE QUAD 60 MCG/0.5 ML (MDV 18-19) IM ONE (10:00)
[2018-06-23] MEDS ORDERED: PNEUMOCOCCAL 23 VACCINE 0.5 ML VIAL IM ONE (10:00)
--- NOTE | 2018-06-23 11:42 | PN ---
Physical Exam: SUBJECTIVE: Patient seen and examined, pt reports feeling better,no complains. OBJECTIVE: Vital Signs Period Temp Pulse Resp BP Sys/Duarte Pulse Ox Last 24 Hr 97.7 F-98.5 F 67-85 12-22 117-139/79-96 96-100 GENERAL: The patient is awake, alert, and fully oriented, in no acute distress. HEAD: Normal with no signs of trauma. EYES: PERRL, extraocular movements intact, sclera anicteric, conjunctiva clear. No ptosis. ENT: Ears normal, nares patent, oropharynx clear without exudates, moist mucous membranes. NECK: Trachea midline, full range of motion, supple. LUNGS: Breath sounds equal, clear to auscultation bilaterally, no wheezes, no crackles, no accessory muscle use. HEART: Regular rate and rhythm, S1, S2 without murmur, rub or gallop. ABDOMEN: Soft, nontender, nondistended, normoactive bowel sounds, no guarding, no rebound, no hepatosplenomegaly, no masses. EXTREMITIES: 2+ pulses, warm, well-perfused, no edema. NEUROLOGICAL: Cranial nerves II through XII grossly intact. Normal speech, gait not observed. PSYCH: Normal mood, normal affect. SKIN: Warm, dry, normal turgor, no rashes or lesions noted Laboratory Results - last 24 hr 06/22/18 06/22/18 06/22/18 11:30 13:02 14:40 WBC RBC Hgb Hct MCV MCH MCHC RDW Plt Count MPV Absolute Neuts (auto) Neutrophils % Lymphocytes % Monocytes % Eosinophils % Basophils % Nucleated RBC % Anticoagulation Therapy Puncture Site ABG pH ABG pCO2 at Pt Temp ABG pO2 at Pt Temp ABG HCO3 ABG O2 Sat (Measured) ABG O2 Content ABG Base Excess Miko Test VBG pH POC VBG pCO2 POC VBG pO2 Mixed VBG HCO3 O2 Delivery Device Oxygen Flow Rate Vent Mode Vent Rate Mechanical Rate Pressure Support Vent Sodium 132 L Potassium 4.7 Chloride 103 Carbon Dioxide 17 L Anion Gap 13 BUN 12 Creatinine 1.3 Creat Clearance w eGFR > 60 POC Glucometer 211 Random Glucose 217 H Calcium 9.4 Phosphorus Magnesium Total Bilirubin AST ALT Alkaline Phosphatase Total Protein Albumin Lipase 137 06/22/18 06/22/18 06/22/18 14:40 17:05 17:08 WBC RBC Hgb Hct MCV MCH MCHC RDW Plt Count MPV Absolute Neuts (auto) Neutrophils % Lymphocytes % Monocytes % Eosinophils % Basophils % Nucleated RBC % Anticoagulation Therapy No Result Required. Puncture Site Right radial ABG pH 7.37 ABG pCO2 at Pt Temp 26.6 L ABG pO2 at Pt Temp 107.0 H ABG HCO3 14.8 L* ABG O2 Sat (Measured) 98.1 ABG O2 Content 21.8 ABG Base Excess -8.6 L Miko Test Positive VBG pH 7.28 L POC VBG pCO2 38.3 POC VBG pO2 16.2 L* Mixed VBG HCO3 17.2 L O2 Delivery Device No Result Required. Oxygen Flow Rate No Result Required. Vent Mode No Result Required. Vent Rate No Result Required. Mechanical Rate No Result Required. Pressure Support Vent No Result Required. Sodium Potassium Chloride Carbon Dioxide Anion Gap BUN Creatinine Creat Clearance w eGFR POC Glucometer 149 Random Glucose Calcium Phosphorus Magnesium Total Bilirubin AST ALT Alkaline Phosphatase Total Protein Albumin Lipase 06/22/18 06/22/18 06/23/18 18:08 22:48 02:35 WBC RBC Hgb Hct MCV MCH MCHC RDW Plt Count MPV Absolute Neuts (auto) Neutrophils % Lymphocytes % Monocytes % Eosinophils % Basophils % Nucleated RBC % Anticoagulation Therapy Puncture Site ABG pH ABG pCO2 at Pt Temp ABG pO2 at Pt Temp ABG HCO3 ABG O2 Sat (Measured) ABG O2 Content ABG Base Excess Miko Test VBG pH POC VBG pCO2 POC VBG pO2 Mixed VBG HCO3 O2 Delivery Device Oxygen Flow Rate Vent Mode Vent Rate Mechanical Rate Pressure Support Vent Sodium 133 L 130 L Potassium 5.0 4.3 Chloride 105 100 Carbon Dioxide 17 L 16 L Anion Gap 11 14 BUN 15 16 Creatinine 1.1 1.1 Creat Clearance w eGFR > 60 > 60 POC Glucometer 369 Random Glucose 188 H 422 H* Calcium 9.3 8.5 Phosphorus Magnesium Total Bilirubin 0.6 AST 15 ALT 21 Alkaline Phosphatase 109 Total Protein 7.8 Albumin 3.8 Lipase 06/23/18 06/23/18 06/23/18 03:39 04:00 05:30 WBC 11.9 H RBC 5.14 Hgb 15.6 Hct 44.4 MCV 86.3 MCH 30.3 MCHC 35.2 RDW 12.7 Plt Count 226 MPV 10.1 Absolute Neuts (auto) 7.3 Neutrophils % 61.0 Lymphocytes % 30.4 D Monocytes % 7.1 Eosinophils % 1.3 D Basophils % 0.2 Nucleated RBC % 0 Anticoagulation Therapy Puncture Site ABG pH ABG pCO2 at Pt Temp ABG pO2 at Pt Temp ABG HCO3 ABG O2 Sat (Measured) ABG O2 Content ABG Base Excess Miko Test VBG pH POC VBG pCO2 POC VBG pO2 Mixed VBG HCO3 O2 Delivery Device Oxygen Flow Rate Vent Mode Vent Rate Mechanical Rate Pressure Support Vent Sodium 135 L Potassium 3.8 Chloride 107 Carbon Dioxide 17 L Anion Gap 11 BUN 14 Creatinine 1.0 Creat Clearance w eGFR > 60 POC Glucometer 263 Random Glucose 229 H Calcium 9.0 Phosphorus Magnesium Total Bilirubin AST ALT Alkaline Phosphatase Total Protein Albumin Lipase 06/23/18 06/23/18 06/23/18 05:30 05:31 06:45 WBC RBC Hgb Hct MCV MCH MCHC RDW Plt Count MPV Absolute Neuts (auto) Neutrophils % Lymphocytes % Monocytes % Eosinophils % Basophils % Nucleated RBC % Anticoagulation Therapy Puncture Site ABG pH ABG pCO2 at Pt Temp ABG pO2 at Pt Temp ABG HCO3 ABG O2 Sat (Measured) ABG O2 Content ABG Base Excess Miko Test VBG pH POC VBG pCO2 POC VBG pO2 Mixed VBG HCO3 O2 Delivery Device Oxygen Flow Rate Vent Mode Vent Rate Mechanical Rate Pressure Support Vent Sodium 136 Potassium 3.7 Chloride 107 Carbon Dioxide 21 Anion Gap 7 L BUN 14 Creatinine 1.0 Creat Clearance w eGFR > 60 POC Glucometer 115 288 Random Glucose 119 H Calcium 8.5 Phosphorus 1.8 L Magnesium 2.3 Total Bilirubin 0.5 AST 11 L ALT 21 Alkaline Phosphatase 102 Total Protein 7.5 Albumin 3.6 Lipase 06/23/18 06/23/18 06/23/18 08:09 09:21 10:09 WBC RBC Hgb Hct MCV MCH MCHC RDW Plt Count MPV Absolute Neuts (auto) Neutrophils % Lymphocytes % Monocytes % Eosinophils % Basophils % Nucleated RBC % Anticoagulation Therapy Puncture Site ABG pH ABG pCO2 at Pt Temp ABG pO2 at Pt Temp ABG HCO3 ABG O2 Sat (Measured) ABG O2 Content ABG Base Excess Miko Test VBG pH POC VBG pCO2 POC VBG pO2 Mixed VBG HCO3 O2 Delivery Device Oxygen Flow Rate Vent Mode Vent Rate Mechanical Rate Pressure Support Vent Sodium Potassium Chloride Carbon Dioxide Anion Gap BUN Creatinine Creat Clearance w eGFR POC Glucometer 274 217 209 Random Glucose Calcium Phosphorus Magnesium Total Bilirubin AST ALT Alkaline Phosphatase Total Protein Albumin Lipase 06/23/18 11:27 WBC RBC Hgb Hct MCV MCH MCHC RDW Plt Count MPV Absolute Neuts (auto) Neutrophils % Lymphocytes % Monocytes % Eosinophils % Basophils % Nucleated RBC % Anticoagulation Therapy Puncture Site ABG pH ABG pCO2 at Pt Temp ABG pO2 at Pt Temp ABG HCO3 ABG O2 Sat (Measured) ABG O2 Content ABG Base Excess Miko Test VBG pH POC VBG pCO2 POC VBG pO2 Mixed VBG HCO3 O2 Delivery Device Oxygen Flow Rate Vent Mode Vent Rate Mechanical Rate Pressure Support Vent Sodium Potassium Chloride Carbon Dioxide Anion Gap BUN Creatinine Creat Clearance w eGFR POC Glucometer 82 Random Glucose Calcium Phosphorus Magnesium Total Bilirubin AST ALT Alkaline Phosphatase Total Protein Albumin Lipase Active Medications Generic Name Dose Route Start Last Admin Trade Name Freq PRN Reason Stop Dose Admin Chlorhexidine Gluconate 1 applic 06/23/18 22:00 Hibiclens For Decolonization - TP HS [facility] Enoxaparin Sodium 40 mg 06/23/18 10:00 06/23/18 09:19 Lovenox - SQ 40 mg DAILY [facility] Administration Insulin Aspart 1 vial 06/23/18 07:00 06/23/18 11:35 Novolog Vial Sliding Scale - SQ Not Given ACHS [facility] Protocol Insulin Detemir 20 units 06/24/18 22:00 Levemir Vial SQ HS [facility] Lisinopril 10 mg 06/23/18 10:00 06/23/18 09:18 Prinivil PO 10 mg DAILY [facility] Administration Mupirocin 1 applic 06/23/18 10:00 06/23/18 09:25 Bactroban Ointment (For Decolonization) - NS 06/28/18 09:59 Not Given BID [facility] Nicotine 14 mg 06/23/18 10:00 06/23/18 09:20 Nicoderm Patch - TD Not Given DAILY [facility] ASSESSMENT/PLAN: This is a 37 year old male with a primary medical history significant for type 1 DM, current smoker, former cocaine/ marijuana and alcohol abuse, admitted with DKA. * DKA - likely due to Insulin noncompliance - BS 304- improving -urine positive for ketones, 2+ Protein -Anion Gap 18- closed now - discontinued Insulin drip , - will cont on Lispro sliding scale and home dose Lantus -Endo consult pending - not in any kind of respiratory distress - ABG - reviewed - will recheck UA * Smoking - started on Nicotine patch- ref - smoking cessation counselling reinforced *mild leukocytosis-likely reactive - no pyuria - cxr - NAD - afebrile * VTE: Lovenox * F/E/N: Consistent carb diet. Visit type - Emergency Visit Emergency Visit: Yes ED Registration Date: 06/22/18 Care time: The patient presented to the Emergency Department on the above date and was hospitalized for further evaluation of their emergent condition. - New Patient This patient is new to me today: No - Critical Care Critical Care patient: No
[2018-06-23 12:18] LABS: URINE APPEARANCE CLEAR; URINE BILIRUBIN NEGATIVE (<2.0 mg/dL); URINE COLOR YELLOW; URINE GLUCOSE (UA) 3+ (NEGATIVE); URINE KETONE 1+ (NEGATIVE); URINE LEUK ESTERASE NEGATIVE (NEGATIVE); URINE NITRITE NEGATIVE (NEGATIVE); URINE PROTEIN NEGATIVE (NEGATIVE); URINE UROBILINOGEN NEGATIVE mg/dL (0.2-1.0)
[2018-06-23 13:49] LABS: ALBUMIN 3.3 g/dl (3.4-5.0); ALK PHOS 92 U/L (45-117); ANION GAP 8 MMOL/L (8-16); BILIRUBIN,TOTAL 0.4 mg/dL (0.2-1); BLOOD UREA NITROGEN 13 mg/dL (7-18); CALCIUM 8.2 mg/dL (8.5-10.1); CHLORIDE 106 mmol/L (98-107); CO2 21 mmol/L (21-32); CREATININE 0.8 mg/dL (0.55-1.3); GLUCOSE,RANDOM 224 mg/dL (74-106); MAGNESIUM 2.1 mg/dL (1.8-2.4); PHOSPHOROUS 2.9 mg/dL (2.5-4.9); SGOT/AST 12 U/L (15-37); SGPT/ALT 22 U/L (13-61); SODIUM 135 mmol/L (136-145); TOT PROT 6.7 g/dl (6.4-8.2)
[2018-06-23 20:07] LABS: ALBUMIN 3.3 g/dl (3.4-5.0); ALK PHOS 100 U/L (45-117); ANION GAP 8 MMOL/L (8-16); BILIRUBIN,TOTAL 0.3 mg/dL (0.2-1); BLOOD UREA NITROGEN 18 mg/dL (7-18); CALCIUM 8.4 mg/dL (8.5-10.1); CHLORIDE 108 mmol/L (98-107); CO2 24 mmol/L (21-32); GLUCOSE,RANDOM 208 mg/dL (74-106); MAGNESIUM 2.1 mg/dL (1.8-2.4); PHOSPHOROUS 2.6 mg/dL (2.5-4.9); POTASSIUM 3.8 mmol/L (3.5-5.1); SGOT/AST 14 U/L (15-37); SGPT/ALT 20 U/L (13-61); SODIUM 139 mmol/L (136-145); TOT PROT 6.8 g/dl (6.4-8.2)
[2018-06-23] MEDS ORDERED: CHLORHEXIDINE GLUCONATE 4% CLEANSER FOR DECOLONIZATION TP SCH (22:00)
[2018-06-23] MEDS ORDERED: ACETAMINOPHEN 325 MG TABLET (FP) PO ONE (23:04)
[2018-06-24 06:35] LABS: ALBUMIN 3.3 g/dl (3.4-5.0); ALK PHOS 83 U/L (45-117); ANION GAP 8 MMOL/L (8-16); BILIRUBIN,TOTAL 0.6 mg/dL (0.2-1); BLOOD UREA NITROGEN 12 mg/dL (7-18); CALCIUM 8.4 mg/dL (8.5-10.1); CHLORIDE 108 mmol/L (98-107); CO2 23 mmol/L (21-32); CREATININE 0.6 mg/dL (0.55-1.3); GLUCOSE,RANDOM 127 mg/dL (74-106); PHOSPHOROUS 3.9 mg/dL (2.5-4.9); POTASSIUM 3.3 mmol/L (3.5-5.1); SGOT/AST 15 U/L (15-37); SGPT/ALT 19 U/L (13-61); SODIUM 139 mmol/L (136-145); TOT PROT 6.6 g/dl (6.4-8.2)
[2018-06-24] MEDS: INSULIN REGULAR 100 UNITS in SODIUM CHLORIDE 99 ML IVPB SCH (07:00)
[2018-06-24] MEDS ORDERED: INSULIN (NOVOLOG) ASPART 100 UNITS/ML 10ML VIAL SQ SCH (07:00)
[2018-06-24] MEDS ORDERED: INSULIN (LEVEMIR) 100 UNITS/ML UNITS SQ ONE (07:00)
[2018-06-24] MEDS ORDERED: POTASSIUM CHLORIDE TABS 20 MEQ TABLET.ER (FP) PO ONE ×2 (08:17→09:30)
[2018-06-24] MEDS ORDERED: PT OWN MED DRAWER 7, Y5N ONE (09:13)
[2018-06-24] MEDS: LISINOPRIL 10 MG TABLET (FP) PO SCH (09:26)
[2018-06-24] MEDS: ENOXAPARIN NA (PORCINE) 40 MG/0.4 ML DISP.SYRIN SQ SCH (09:27)
[2018-06-24] MEDS: NICOTINE 14 MG/24 HOURS TOPICAL PATCH TD SCH ×2 (09:27→09:46)
[2018-06-24] MEDS: MUPIROCIN 2% TOPICAL OINTMENT FOR DECOLONIZATION NS SCH (09:37)
[2018-06-24 10:34] VITALS: BP 126/79; PULSE 75
[2018-06-24 11:00] VITALS: TEMP 98.3
--- NOTE | 2018-06-24 13:06 | PN ---
Physical Exam: SUBJECTIVE: Patient seen and examined at bedside this morning. He admits that he feels well, and denies acute complaints today. States that he would like to go home. OBJECTIVE: Vital Signs Period Temp Pulse Resp BP Sys/Duarte Pulse Ox Last 24 Hr 97.8 F-98.9 F 59-86 13-24 103-127/65-80 99-99 GENERAL: The patient is awake, alert, and fully oriented, in no acute distress. HEAD: Normocephalic, atraumatic. EYES: PERRL, extraocular movements intact, sclera anicteric, conjunctiva clear. ENT: Oropharynx clear without exudates, moist mucous membranes. NECK: Trachea midline, supple without lymphadenopathy. LUNGS: Breath sounds equal, clear to auscultation bilaterally. No wheezes, no crackles. No accessory muscle use. HEART: Regular rate and rhythm, S1, S2 without murmur, rub or gallop. ABDOMEN: Soft, nontender, nondistended. Normoactive bowel sounds X4 quadrants. No guarding, no rebound tenderness. EXTREMITIES: 2+ radial, dorsalis pedis pulses bilaterally, warm, well-perfused. No edema bilateral lower extremities. NEUROLOGICAL: Cranial nerves II through XII grossly intact. Normal speech. No gross focal deficits. PSYCH: Normal mood, normal affect. SKIN: Warm, dry. Laboratory Results - last 24 hr 06/23/18 06/23/18 06/23/18 13:09 13:09 13:12 Sodium 135 L Potassium 4.0 Chloride 106 Carbon Dioxide 21 Anion Gap 8 BUN 13 Creatinine 0.8 Creat Clearance w eGFR > 60 POC Glucometer 223 Random Glucose 224 H Hemoglobin A1c % 13.5 H Calcium 8.2 L Phosphorus 2.9 Magnesium 2.1 Total Bilirubin 0.4 AST 12 L ALT 22 Alkaline Phosphatase 92 Total Protein 6.7 Albumin 3.3 L 06/23/18 06/23/18 06/23/18 14:07 16:31 18:15 Sodium Potassium Chloride Carbon Dioxide Anion Gap BUN Creatinine Creat Clearance w eGFR POC Glucometer 211 170 337 Random Glucose Hemoglobin A1c % Calcium Phosphorus Magnesium Total Bilirubin AST ALT Alkaline Phosphatase Total Protein Albumin 06/23/18 06/23/18 06/23/18 19:00 19:35 20:03 Sodium 139 Potassium 3.8 Chloride 108 H Carbon Dioxide 24 Anion Gap 8 BUN 18 Creatinine 1.0 Creat Clearance w eGFR > 60 POC Glucometer 315 169 Random Glucose 208 H Hemoglobin A1c % Calcium 8.4 L Phosphorus 2.6 Magnesium 2.1 Total Bilirubin 0.3 AST 14 L ALT 20 Alkaline Phosphatase 100 Total Protein 6.8 Albumin 3.3 L 06/23/18 06/23/18 06/23/18 21:06 22:12 23:01 Sodium Potassium Chloride Carbon Dioxide Anion Gap BUN Creatinine Creat Clearance w eGFR POC Glucometer 153 182 99 Random Glucose Hemoglobin A1c % Calcium Phosphorus Magnesium Total Bilirubin AST ALT Alkaline Phosphatase Total Protein Albumin 06/23/18 06/24/18 06/24/18 23:53 00:51 02:03 Sodium Potassium Chloride Carbon Dioxide Anion Gap BUN Creatinine Creat Clearance w eGFR POC Glucometer 82 121 54 Random Glucose Hemoglobin A1c % Calcium Phosphorus Magnesium Total Bilirubin AST ALT Alkaline Phosphatase Total Protein Albumin 06/24/18 06/24/18 06/24/18 03:01 05:30 05:57 Sodium 139 Potassium 3.3 L Chloride 108 H Carbon Dioxide 23 Anion Gap 8 BUN 12 Creatinine 0.6 Creat Clearance w eGFR > 60 POC Glucometer 112 166 Random Glucose 127 H Hemoglobin A1c % Calcium 8.4 L Phosphorus 3.9 Magnesium 2.0 Total Bilirubin 0.6 AST 15 ALT 19 Alkaline Phosphatase 83 Total Protein 6.6 Albumin 3.3 L 06/24/18 10:21 Sodium Potassium Chloride Carbon Dioxide Anion Gap BUN Creatinine Creat Clearance w eGFR POC Glucometer 301 Random Glucose Hemoglobin A1c % Calcium Phosphorus Magnesium Total Bilirubin AST ALT Alkaline Phosphatase Total Protein Albumin ASSESSMENT/PLAN: Patient is a 37 year old male with history of insulin dependent diabetes mellitus, former polysubstance abuse (cocaine, marijuana, alcohol) admitted to ICU for diabetic ketoacidosis. Type 1 DM, DKA Patient eloped today prior to rounds; before evaluation by attending physician. Visit type - Emergency Visit Emergency Visit: Yes ED Registration Date: 06/22/18 Care time: The patient presented to the Emergency Department on the above date and was hospitalized for further evaluation of their emergent condition. - New Patient This patient is new to me today: Yes Date on this admission: 06/24/18 - Critical Care Critical Care patient: Yes Total Critical Care Time (in minutes): 35 Critical Care Statement: The care of this patient involved high complexity decision making to prevent further life threatening deterioration of the patient 's condition and/or to evaluate & treat vital organ system(s) failure or risk of failure. - Discharge Referral Referred to [facility] No
[2018-06-24] MEDS ORDERED: INSULIN (LEVEMIR) 100 UNITS/ML UNITS SQ SCH (22:00)
== END 2018-06-24 10:30 | disposition left against medical advice (07) | DRG 420 ==
LOC: JER 09:03 → JERBED 12:14 → JICU 06-23 03:54
PROVIDERS: ADMIT Internal Medicine; ATTEND Family Medicine
DX: E10.10 Type 1 diabetes mellitus with ketoacidosis without coma (principal); F17.210 Nicotine dependence, cigarettes, uncomplicated; F10.11 Alcohol abuse, in remission; F12.11 Cannabis abuse, in remission; D72.829 Elevated white blood cell count, unspecified; Z79.4 Long term (current) use of insulin; Z91.14 Patient's other noncompliance with medication regimen; F14.11 Cocaine abuse, in remission
CPT/HCPCS: 36415; 36600; 71045-TC-FY; 80048; 80053; 81003; 81015; 82009; 82550; 82553; 82803; 82962; 83036; 83690; 83735; 84100; 84484; 85025; 85610; 85730; 90688; 90732; 93005; 93010; 99285-25; G0008; G0009; J7030